=== PATIENT | female | born 1990 | race African-American/Black ===

== ENCOUNTER 2024-04-11 15:32 | Day surgery (SDC) | payer OTHER ==
[2024-04-11 16:05] VITALS: BMI 31.0
[2024-04-11] MEDS ORDERED: hydrALAZINE 20 MG/ML VIAL SLOW IVP PRN (16:29)
== END 2024-04-11 18:52 | disposition home or self-care (01) ==
LOC: CSHLD/OP 15:32
PROVIDERS: ATTEND Family Medicine
DX: O36.8130 Decreased fetal movements, third trimester, not applicable or unspecified (principal); Z3A.28 28 weeks gestation of pregnancy; Z79.82 Long term (current) use of aspirin; Z79.899 Other long term (current) drug therapy
CPT/HCPCS: 76819; 99282

== ENCOUNTER 2024-05-15 09:43 | Day surgery (SDC) | payer OTHER ==
[2024-05-15 10:14] VITALS: BMI 31.1
[2024-05-15] MEDS ORDERED: hydrALAZINE 20 MG/ML VIAL SLOW IVP PRN (10:54)
== END 2024-05-15 12:48 | disposition home or self-care (01) ==
LOC: CSHLD/OP 09:43
PROVIDERS: ATTEND Emergency Medicine
DX: O36.5930 Maternal care for other known or suspected poor fetal growth, third trimester, not applicable or unspecified (principal); O99.013 Anemia complicating pregnancy, third trimester; Z14.8 Genetic carrier of other disease; Z3A.33 33 weeks gestation of pregnancy; Z79.82 Long term (current) use of aspirin; Z79.899 Other long term (current) drug therapy
CPT/HCPCS: 59025; 76819

== ENCOUNTER 2024-06-09 13:06 | Inpatient (IN) | payer OTHER ==
[2024-06-09 13:45] VITALS: BMI 31.6
[2024-06-09 14:10] LABS: Fetal Membranes Rupture No Membranes Rupture (No Rupture)
[2024-06-09] MEDS ORDERED: hydrALAZINE 20 MG/ML VIAL SLOW IVP PRN ×3 (14:15→18:53)
[2024-06-09] MEDS ORDERED: Lidocaine 1% (PF) 30 ML VIAL SC PRN (15:38)
[2024-06-09] MEDS ORDERED: Promethazine HCl 25 MG/ML VIAL IM PRN ×2 (15:38→17:22)
[2024-06-09] MEDS ORDERED: Ondansetron PF 4 MG/2 ML Vial IVP PRN ×3 (15:38→17:22)
[2024-06-09] MEDS ORDERED: Ibuprofen 800 MG TAB PO PRN (15:39)
[2024-06-09] MEDS ORDERED: fentaNYL 50 mcg/mL 1 mL Vial SLOW IVP PRN ×2 (15:39→17:22)
[2024-06-09] MEDS ORDERED: Oxytocin 30 units/NS 500 ML 500 ML IV SCH ×2 (15:45)
[2024-06-09] MEDS ORDERED: Bicitra 30 ML UDCUP PO PRN (17:04)
[2024-06-09] MEDS ORDERED: Famotidine/PF 20 mg/2ml Vial SLOW IVP PRN (17:04)
[2024-06-09 17:08] LABS: Syphilis Antibody Nonreactive (Nonreactive); Syphilis Antibody Index 0.04 S/CO (<1.00 Non-Reactive)
[2024-06-09 17:10] LABS: Hematocrit 32.2 % (34.9-44.5); Hemoglobin 10.3 g/dL (12.0-15.5); Mean Corpuscular Hemoglobin 26.1 pg (27.0-33.0); Mean Corpuscular Volume 81.7 fL (81.6-98.3); Mean Platelet Volume 11.9 fL (7.4-10.4); Platelet Count 167 10x3/uL (150-450); RBC Distribution Width 14.3 % (11.5-14.5); Red Blood Cell (RBC) Count 3.94 10x6/uL (3.90-5.03)
[2024-06-09] MEDS ORDERED: CEFAZOLIN 2 GM in Sodium Chloride 0.9% 100 ML IVPB SCH (17:15)
[2024-06-09 17:20] LABS: HBsAg Index 0.18 S/CO (0-0.99); Hep B Surf Ag - L&D Non-Reactive S/CO (NonReactive)
[2024-06-09] MEDS ORDERED: Moisturizing Cream (Eucerin) 113 GM JAR TOP PRN (17:22)
[2024-06-09] MEDS ORDERED: Naloxone HCl 0.4 mg/ml Vial IV PRN (17:22)
[2024-06-09] MEDS ORDERED: Naloxone HCl 0.4 mg/ml Vial IVP PRN ×2 (17:22)
[2024-06-09] MEDS ORDERED: Meperidine HCl/PF 25 MG (1 mL) VIAL SLOW IVP PRN (17:22)
[2024-06-09] MEDS ORDERED: HYDROmorphone 0.5 MG/0.5 ML SYRINGE SLOW IVP PRN (17:22)
[2024-06-09] MEDS ORDERED: Communication Order-Pharmacy FS SCH (17:30)
[2024-06-09 18:18] LABS: Analyzer IN Cardio CS NICU; Critical Notified By: clumpkins rt; RapidComm Collect By nur.smo7
[2024-06-09 18:25] LABS: Analyzer IN Cardio CS NICU; Critical Notified By: clumpkins rt; RapidComm Collect By nur.sm7; pH (Cord, venous) 7.159 (7.250-7.350)
[2024-06-09] MEDS ORDERED: Bisacodyl 10 MG SUPP PR PRN (18:53)
[2024-06-09] MEDS ORDERED: diphenhydrAMINE 25 MG CAP PO PRN (18:53)
[2024-06-09] MEDS ORDERED: Boostrix 0.5 ML (Tdap) VIAL (>/=7 yrs of age) IM ONE (18:53)
[2024-06-09] MEDS: diphenhydrAMINE 50 MG/ML VIAL IVP PRN (22:00)
[2024-06-09] MEDS: Fluconazole 100 MG TAB PO SCH (22:12)
[2024-06-09] MEDS: Misoprostol 100 MCG TAB VAG SCH (22:12)
[2024-06-09] MEDS: Erythromycin Base 0.5% Oint 1 GM TUBE ONE (22:13)
[2024-06-09] MEDS: Phytonadione Neonatal 1 MG/0.5 ML AMP ONE (22:13)
[2024-06-09] MEDS: Hepatitis B Vaccine 10 MCG/0.5 ML SYR ONE (22:13)
[2024-06-09] MEDS: PHENYLEPHRINE-NS 100 MCG/ML 10 ML SYRINGE ONE (22:13)
[2024-06-09] MEDS: CEFAZOLIN 2 GM VIAL ONE (22:13)
[2024-06-09] MEDS: Ondansetron PF 4 MG/2 ML Vial ONE ×2 (22:13→22:14)
[2024-06-09] MEDS: Morphine PF 10 MG/10 ML VIAL ONE (22:13)
[2024-06-09] MEDS: Dexamethasone 10 MG/ML VIAL ONE (22:14)
[2024-06-09] MEDS: Ketorolac Tromethamine 30 MG (1 mL) VIAL ONE (22:14)
[2024-06-09] MEDS: Oxytocin 10 UNITS/ML VIAL ONE ×2 (22:14)
[2024-06-09] MEDS: Docusate 100 MG CAP PO SCH (22:14)
[2024-06-10 04:16] LABS: Hematocrit 29.7 % (34.9-44.5); Hemoglobin 9.6 g/dL (12.0-15.5); Mean Corpuscular HGB CONC 32.3 g/dL (32.0-36.0); Mean Corpuscular Hemoglobin 26.5 pg (27.0-33.0); Platelet Count 162 10x3/uL (150-450); RBC Distribution Width 14.2 % (11.5-14.5); Red Blood Cell (RBC) Count 3.62 10x6/uL (3.90-5.03); White Blood Cell (WBC) Count 9.7 10x3/uL (3.5-10.5)
[2024-06-10] MEDS ORDERED: HYDROcodone/Acetaminophen 5/325 mg Tablet PO PRN (05:30)
[2024-06-10] MEDS: Simethicone Chewable 80 MG TAB PO PRN (08:47)
[2024-06-10] MEDS: Prenatal Vitamin 1 TAB PO SCH (08:47)
[2024-06-10] MEDS: Ketorolac Tromethamine 30 MG (1 mL) VIAL IVP PRN (08:48)
[2024-06-10] MEDS: Ferrous Sulfate 325 MG TAB PO SCH (19:07)
[2024-06-11] MEDS: Ibuprofen 800 MG TAB PO SCH (06:37)
[2024-06-11 12:07] VITALS: BP 109/72; TEMP 97.8
== END 2024-06-11 16:30 | disposition home or self-care (01) | DRG 788 ==
LOC: CSHLD/OP 13:06 → CSHLD 15:13 → CSHPP 21:45
PROVIDERS: ADMIT Family Medicine; ATTEND Family Medicine
PROC: 10D00Z1 Extraction of Products of Conception, Low, Open Approach (ICD-10-PCS; principal; 2024-06-09)
DX: O76 Abnormality in fetal heart rate and rhythm complicating labor and delivery (principal); O36.5930 Maternal care for other known or suspected poor fetal growth, third trimester, not applicable or unspecified; Z3A.37 37 weeks gestation of pregnancy; Z37.0 Single live birth
CPT/HCPCS: 36415; 76819; 82805; 84112; 85027; 86780; 86850; 86900; 86901; 87340; J1100; J1200; J1885; J2274; J2405; J2590